=== PATIENT | male | born 1945 | race Caucasian/White ===

== ENCOUNTER 2018-11-21 18:02 | Inpatient (IN) | payer MEDICARE, OTHER ==
[~2018-11-21] VITALS: Ht 175.3 cm; Wt 52.8 kg
[2018-11-21] MEDS ORDERED: MAGN400T36 PO (18:38)
[2018-11-21] MEDS ORDERED: INSU100I13 SQ-INSULIN (18:38)
[2018-11-21] MEDS ORDERED: POTA99TA24 PO (18:38)
[2018-11-21] MEDS ORDERED: INSU100C SQ-INSULIN (18:38)
--- NOTE | 2018-11-21 18:39 | NUR ---
Pt denies additonal home meds listed [facility]. Med reconcilation updated per pt's verbal information.
--- NOTE | 2018-11-21 19:01 | NUR ---
PT SUPINE IN [facility] NOTED. PT CONVERSING WITH MD. BP/SPO2/ECG MONITORING IN PLACE. NSR ON MONITOR, HR 65.
--- NOTE | 2018-11-21 19:14 | NUR ---
Provided bedside report to ДМИТРИЙ Lala. All questions answered. ДМИТРИЙ Lala to assume care of pt.
--- NOTE | 2018-11-21 19:57 | NUR ---
REPORT TO ДМИТРИЙ CHUA ON ONC. PT PREPARED FOR TRANSPORT.
[2018-11-21] MEDS ORDERED: THIAMINE 100MG TABLET PO ONE (20:00)
[2018-11-21] MEDS ORDERED: ONDANSETRON 2MG/ML, 2ML IVPush PRN (20:00)
[2018-11-21] MEDS ORDERED: LABETALOL 5MG/ML, 20ML IVPush PRN (20:00)
[2018-11-21] MEDS: NICOTINE 14MG/24 HR PATCH.TD24 TD SCH (20:00)
[2018-11-21 20:14] VITALS: BP 107/66
[2018-11-21] MEDS: INSULIN LISPRO 100 UNITS/ML, PEN SQ-INSULIN SCH (20:26)
[2018-11-21 20:55] VITALS: BP 107/66
[2018-11-21] MEDS ORDERED: INSULIN GLARGINE 100 UNITS/ML, PEN SQ-INSULIN SCH (21:00)
[2018-11-21] MEDS: PANCRELIPASE 24,000 CAPSULE.DR PO SCH (21:29)
[2018-11-21] MEDS: HEPARIN 5,000 UNITS/ML, 1ML SQ SCH (21:32)
[2018-11-22 00:41] VITALS: BP 100/66
[2018-11-22 04:57] LABS: BASOPHILS # (AUTO) 0.01 x10^3/uL (0-0.1); BASOPHILS % (AUTO) 0 % (0-1); EOSINOPHILS # (AUTO) 0.03 x10^3/uL (0-0.4); EOSINOPHILS % (AUTO) 0 % (1-7); LYMPHOCYTES # (AUTO) 0.86 x10^3/uL (1-3.4); LYMPHOCYTES % (AUTO) 8 % (22-44); MD NO; MEAN CORPUSCULAR HEMOGLOBIN 34.9 pg (27.5-34.5); MEAN CORPUSCULAR VOLUME 105.7 fL (81-97); MEAN PLATELET VOLUME 8.6 fL (7.4-10.4); MONOCYTES # (AUTO) 0.38 x10^3/uL (0.2-0.8); MONOCYTES % (AUTO) 4 % (2-9); NEUTROPHILS % (AUTO) 88 % (42-75); PLATELET COUNT 172 x10^3/uL (130-400); RED BLOOD COUNT 2.67 x10^6/uL (4.38-5.82); RED CELL DISTRIBUTION WIDTH 16.6 % (9.4-14.8)
[2018-11-22] MEDS: HEPARIN 5,000 UNITS/ML, 1ML SQ SCH ×3 (05:00→20:49)
[2018-11-22 05:08] LABS: INTERNATIONAL NORMALIZED RATIO 1.06 (0.93-1.1); PROTHROMBIN TIME 11.1 Seconds (9.6-11.5)
[2018-11-22 05:10] LABS: ANION GAP 5 mmol/L (5-15); CALCIUM 7.2 mg/dL (8.5-10.1); CHLORIDE 108 mmol/L (98-107)
[2018-11-22 05:26] LABS: HEMOGLOBIN A1C 5.9 % (4.2-6.3)
[2018-11-22 05:30] LABS: ALANINE AMINOTRANSFERASE 109 U/L (12-78); ALKALINE PHOSPHATASE 1672 U/L (45-117); BILIRUBIN,TOTAL 1.1 mg/dL (0.2-1.0); CREATININE 1.66 mg/dL (0.7-1.3); TOTAL PROTEIN 4.5 g/dL (6.4-8.2)
[2018-11-22 07:00] VITALS: BP 89/50
[2018-11-22] MEDS ORDERED: BISACODYL 5 MG EC TABLET PO SCH (08:00)
[2018-11-22] MEDS: MAGNESIUM OXIDE 400 MG TABLET PO SCH (09:24)
[2018-11-22] MEDS: OMEPRAZOLE 20 MG CAPSULE.DR PO SCH (09:24)
[2018-11-22] MEDS: MULTIVITAMINS/MINERALS TABLET PO SCH (09:24)
[2018-11-22] MEDS: FOLIC ACID 1 MG TABLET PO SCH (09:24)
[2018-11-22] MEDS: PANCRELIPASE 24,000 CAPSULE.DR PO SCH ×3 (09:24→17:17)
[2018-11-22] MEDS: INSULIN LISPRO 100 UNITS/ML, PEN SQ-INSULIN SCH ×4 (09:30→20:47)
[2018-11-22 12:26] VITALS: BP 100/64
[2018-11-22] MEDS: THIAMINE 100MG TABLET PO SCH (15:10)
[2018-11-22] MEDS ORDERED: MOVIPREP POWDER 1 PREP KIT PO SCH (17:00)
[2018-11-22 19:02] VITALS: BP 107/68
[2018-11-22] MEDS: NICOTINE 14MG/24 HR PATCH.TD24 TD SCH (20:00)
[2018-11-23] VITALS (8 sets, daily range): BP systolic 100–139; BP diastolic 60–79
[2018-11-23] MEDS: HEPARIN 5,000 UNITS/ML, 1ML SQ SCH ×4 (04:17→23:28)
[2018-11-23] MEDS: OMEPRAZOLE 20 MG CAPSULE.DR PO SCH (04:38)
[2018-11-23] MEDS ORDERED: MOVIPREP POWDER 1 PREP KIT PO ONE (05:00)
[2018-11-23 05:04] LABS: BASOPHILS # (AUTO) 0.02 x10^3/uL (0-0.1); BASOPHILS % (AUTO) 0 % (0-1); EOSINOPHILS # (AUTO) 0.03 x10^3/uL (0-0.4); EOSINOPHILS % (AUTO) 0 % (1-7); LYMPHOCYTES % (AUTO) 15 % (22-44); MD NO; MEAN CORPUSCULAR HEMOGLOBIN 35.2 pg (27.5-34.5); MEAN CORPUSCULAR HGB CONC 32.8 g/dL (33.2-36.2); MEAN CORPUSCULAR VOLUME 107.2 fL (81-97); MEAN PLATELET VOLUME 8.7 fL (7.4-10.4); MONOCYTES # (AUTO) 0.63 x10^3/uL (0.2-0.8); MONOCYTES % (AUTO) 8 % (2-9); NEUTROPHILS # (AUTO) 5.94 x10^3/uL (1.8-6.8); NEUTROPHILS % (AUTO) 76 % (42-75); PLATELET COUNT 186 x10^3/uL (130-400); RED BLOOD COUNT 2.53 x10^6/uL (4.38-5.82); RED CELL DISTRIBUTION WIDTH 16.9 % (9.4-14.8)
[2018-11-23 05:14] LABS: ALBUMIN 1.9 g/dL (3.4-5.0); ANION GAP 5 mmol/L (5-15); CALCIUM 7.4 mg/dL (8.5-10.1); CHLORIDE 112 mmol/L (98-107)
[2018-11-23 05:32] LABS: ALANINE AMINOTRANSFERASE 87 U/L (12-78); ALKALINE PHOSPHATASE 1395 U/L (45-117); CREATININE 1.58 mg/dL (0.7-1.3); TOTAL PROTEIN 4.5 g/dL (6.4-8.2)
[2018-11-23] MEDS: INSULIN LISPRO 100 UNITS/ML, PEN SQ-INSULIN SCH ×4 (05:32→20:15)
[2018-11-23] MEDS: PANCRELIPASE 24,000 CAPSULE.DR PO SCH ×3 (06:57→16:42)
[2018-11-23] MEDS: MAGNESIUM OXIDE 400 MG TABLET PO SCH (08:25)
[2018-11-23] MEDS: FOLIC ACID 1 MG TABLET PO SCH (08:25)
[2018-11-23] MEDS: THIAMINE 100MG TABLET PO SCH (08:25)
[2018-11-23] MEDS: MULTIVITAMINS/MINERALS TABLET PO SCH (08:25)
[2018-11-23] MEDS ORDERED: PROPOFOL 10 MG/ML, 20ML ONE ×2 (08:46→09:15)
[2018-11-23] MEDS ORDERED: PHENYLEPHRINE 10 MG/ML ONE (08:52)
[2018-11-23] MEDS ORDERED: LIDOCAINE-MPF 1%, 5ML ONE (11:04)
[2018-11-23] MEDS ORDERED: FENTANYL PF 100 MCG/2ML ONE (11:19)
[2018-11-23] MEDS ORDERED: MIDAZOLAM 1 MG/ML, 5ML ONE (11:19)
[2018-11-23] MEDS ORDERED: FLUMAZENIL 0.1 MG/1 ML, 5ML ONE (11:19)
[2018-11-23] MEDS ORDERED: NALOXONE 1 MG/ML, 2ML ONE (11:20)
[2018-11-23 15:45] LABS: ANA SCREEN POSITIVE (Negative); ANTI-NUCLEAR ANTIBODY PATTERN SPECKLED
[2018-11-23] MEDS ORDERED: POTASSIUM PHOSPHATE 22 MEQ in SODIUM CHLORIDE 0.9% 250 ML IV ONE (16:30)
[2018-11-23] MEDS: NICOTINE 14MG/24 HR PATCH.TD24 TD SCH (20:00)
[2018-11-24 01:50] VITALS: BP 106/66
[2018-11-24 05:03] LABS: BASOPHILS # (AUTO) 0.03 x10^3/uL (0-0.1); BASOPHILS % (AUTO) 0 % (0-1); EOSINOPHILS # (AUTO) 0.01 x10^3/uL (0-0.4); EOSINOPHILS % (AUTO) 0 % (1-7); LYMPHOCYTES # (AUTO) 1.04 x10^3/uL (1-3.4); LYMPHOCYTES % (AUTO) 11 % (22-44); MD NO; MEAN CORPUSCULAR HEMOGLOBIN 35.4 pg (27.5-34.5); MEAN CORPUSCULAR HGB CONC 32.7 g/dL (33.2-36.2); MEAN CORPUSCULAR VOLUME 108.2 fL (81-97); MEAN PLATELET VOLUME 8.7 fL (7.4-10.4); MONOCYTES # (AUTO) 0.64 x10^3/uL (0.2-0.8); MONOCYTES % (AUTO) 7 % (2-9); NEUTROPHILS # (AUTO) 7.42 x10^3/uL (1.8-6.8); NEUTROPHILS % (AUTO) 81 % (42-75); PLATELET COUNT 202 x10^3/uL (130-400); RED BLOOD COUNT 2.52 x10^6/uL (4.38-5.82)
[2018-11-24 05:16] LABS: ALANINE AMINOTRANSFERASE 77 U/L (12-78); ALBUMIN 1.8 g/dL (3.4-5.0); ANION GAP 5 mmol/L (5-15); CALCIUM 7.8 mg/dL (8.5-10.1); CHLORIDE 117 mmol/L (98-107); CREATININE 1.54 mg/dL (0.7-1.3)
[2018-11-24] MEDS: OMEPRAZOLE 20 MG CAPSULE.DR PO SCH (05:17)
[2018-11-24 05:43] LABS: ALKALINE PHOSPHATASE 1423 U/L (45-117); BILIRUBIN,TOTAL 0.5 mg/dL (0.2-1.0); TOTAL PROTEIN 4.6 g/dL (6.4-8.2)
[2018-11-24 07:20] VITALS: BP 124/73
[2018-11-24] MEDS: PANCRELIPASE 24,000 CAPSULE.DR PO SCH ×2 (07:59→11:11)
[2018-11-24] MEDS: INSULIN LISPRO 100 UNITS/ML, PEN SQ-INSULIN SCH ×2 (08:00→11:00)
[2018-11-24] MEDS: MULTIVITAMINS/MINERALS TABLET PO SCH (09:11)
[2018-11-24] MEDS: MAGNESIUM OXIDE 400 MG TABLET PO SCH (09:11)
[2018-11-24] MEDS: FOLIC ACID 1 MG TABLET PO SCH (09:11)
[2018-11-24] MEDS: THIAMINE 100MG TABLET PO SCH (09:11)
[2018-11-24] MEDS ORDERED: INSU100I13 SQ-INSULIN (11:05)
[2018-11-24] MEDS ORDERED: THIA100T67 PO (11:05)
[2018-11-24] MEDS ORDERED: FOLI-17 PO (11:05)
[2018-11-24] MEDS ORDERED: OMEP-110 PO (11:05)
[2018-11-24] MEDS ORDERED: MULT-484 PO (11:05)
[2018-11-24] MEDS ORDERED: LIPA1CAP61 PO (11:05)
[2018-11-24] MEDS: HEPARIN 5,000 UNITS/ML, 1ML SQ SCH (13:00)
== END 2018-11-24 16:08 | disposition home or self-care (01) | DRG 438 ==
LOC: ED 19:25 → EDIP 19:30 → ED 19:42 → 3NW 20:13
PROVIDERS: ADMIT Family Medicine; ATTEND Family Medicine
PROC: 0DBK8ZZ Excision of Ascending Colon, Via Natural or Artificial Opening Endoscopic (ICD-10-PCS; 2018-11-23)
PROC: 0DBB8ZX Excision of Ileum, Via Natural or Artificial Opening Endoscopic, Diagnostic (ICD-10-PCS; 2018-11-23)
PROC: 0DBN8ZZ Excision of Sigmoid Colon, Via Natural or Artificial Opening Endoscopic (ICD-10-PCS; 2018-11-23)
PROC: 0FB03ZX Excision of Liver, Percutaneous Approach, Diagnostic (ICD-10-PCS; principal; 2018-11-23 09:00)
DX: K86.0 Alcohol-induced chronic pancreatitis (principal); E43 Unspecified severe protein-calorie malnutrition; K86.2 Cyst of pancreas; Z68.1 Body mass index [BMI] 19.9 or less, adult; M48.56XA Collapsed vertebra, not elsewhere classified, lumbar region, initial encounter for fracture; R53.83 Other fatigue; E10.649 Type 1 diabetes mellitus with hypoglycemia without coma; D12.2 Benign neoplasm of ascending colon; I12.9 Hypertensive chronic kidney disease with stage 1 through stage 4 chronic kidney disease, or unspecified chronic kidney disease; D12.5 Benign neoplasm of sigmoid colon; D63.8 Anemia in other chronic diseases classified elsewhere; E10.21 Type 1 diabetes mellitus with diabetic nephropathy; E10.22 Type 1 diabetes mellitus with diabetic chronic kidney disease; E10.319 Type 1 diabetes mellitus with unspecified diabetic retinopathy without macular edema; E10.36 Type 1 diabetes mellitus with diabetic cataract; E53.8 Deficiency of other specified B group vitamins; E78.5 Hyperlipidemia, unspecified; E83.39 Other disorders of phosphorus metabolism; E86.1 Hypovolemia; F10.10 Alcohol abuse, uncomplicated; Y90.9 Presence of alcohol in blood, level not specified; F17.210 Nicotine dependence, cigarettes, uncomplicated; I70.0 Atherosclerosis of aorta; J43.9 Emphysema, unspecified; K21.9 Gastro-esophageal reflux disease without esophagitis; K57.30 Diverticulosis of large intestine without perforation or abscess without bleeding; K64.1 Second degree hemorrhoids; K76.0 Fatty (change of) liver, not elsewhere classified; M85.80 Other specified disorders of bone density and structure, unspecified site; N18.3 Chronic kidney disease, stage 3 (moderate)
CPT/HCPCS: 36415; 47000; 74181; 76942; 80053; 80074; 82103; 82105; 82140; 82607; 82962; 82977; 83036; 83516; 83735; 84100; 84443; 85025; 85610; 86038; 86039; 87046; 87427; 88305; 88307; 88313; 93005; 99156; 99157; 99285; G0378; J1644; J2250; J2704; J3010; J1815; J2310; J2370; J7050